=== PATIENT | female | born 1980 ===

== ENCOUNTER → 2024-06-26 13:29 | Outpatient (BNVA) | payer MEDICAID, SELFPAY | PROVIDERS: PCP Nurse Practitioner; Visit Provider Internal Medicine | DX: R79.89 Other specified abnormal findings of blood chemistry (principal); E06.9 Thyroiditis, unspecified | CPT/HCPCS: 83516; 84439; 84443; 84480; 86376; 86800 ==

== ENCOUNTER → 2025-06-18 10:29 | Outpatient (BNVA) | payer MEDICAID, SELFPAY | PROVIDERS: PCP Nurse Practitioner; Referring Provider Nurse Practitioner; Visit Provider Internal Medicine Rheumatology | DX: M25.50 Pain in unspecified joint (principal) | CPT/HCPCS: 36415; 72100; 72202; 73562; 80076; 82306; 82565; 83520; 85025; 85651; 86140; 86200; 86235; 86480; 86704; 86803; 86812; 87340; 87522 ==

== ENCOUNTER 2025-07-15 15:55 | Outpatient (CLI) | payer MEDICAID, SELFPAY ==
--- NOTE | 2025-07-15 | XR_ITS ---
NOTE: Original Signature date and time was: 07/16/25 @ 0819 Exam: XR lumbar spine min 4V [id number] Date/Time of Exam: 07/15/2025 4:00 PM Reason For Exam: lumbar pain DLP: Comparison 06/18/2025. 5 mm degenerative anterolisthesis of L4 on L5. No fracture. The disc spaces are well-maintained. Posterior elements are otherwise intact. Slight spondylosis. Moderate facet DJD at L4-5. No additional flexion or extension instability demonstrated. IMPRESSION: 1. 5 mm degenerative anterolisthesis of L4 on L5. No fracture or additional instability. MTDD
== END 2025-07-15 15:56 | disposition home or self-care (01) ==
LOC: RAD 15:57
PROVIDERS: PCP Nurse Practitioner; Visit Provider Orthopaedic Surgery
DX: M54.42 Lumbago with sciatica, left side (principal); M54.41 Lumbago with sciatica, right side; G89.29 Other chronic pain
CPT/HCPCS: 72110

== ENCOUNTER 2025-07-25 09:10 | Outpatient (CLI) | payer MEDICAID, SELFPAY ==
--- NOTE | 2025-07-25 09:15 | US_ITS ---
WS: [id number] RIGHT UPPER QUADRANT ULTRASOUND HISTORY: ABNORMAL RESULTS OF LIVER FUNCTION STUDIES COMPARISON: None available. Liver: 17.4 cm in length. Cirrhotic liver. Coarse echotexture. No mass identified. Portal Vein: Normal hepatopetal flow with monophasic waveform. Gallbladder: Normally distended gallbladder with no stones or wall thickening. CBD: 0.5 cm Pancreas: Normal size and echogenicity. Right kidney: 13.8 cm in length. Normal size and echogenicity. No hydronephrosis or mass. Aorta and IVC: Unremarkable abdominal aorta and IVC. No ascites. US/US liver [id number] IMPRESSION: 1. Hepatic cirrhosis. No hepatic mass. 2. Negative gallbladder.
[2025-07-25 09:34] LABS: Hematocrit 40.9 % (36-47); Hemoglobin 13.80 g/dL (11.27-16.99); Mean Corpuscular HGB Conc 33.7 g/dL (30-55); Mean Corpuscular Hemoglobin 31.8 pg (27-33); Mean Corpuscular Volume 94.2 fl (85-98); Nucleated Red Blood Cells % 0 %; Platelet Count 125 10^3/cmm (157-399); Red Blood Count 4.34 10^6/uL (3.85-5.65); White Blood Count 5.14 10^3/uL (3.29-11.43)
[2025-07-25 09:54] LABS: Alanine Aminotransferase 60 U/L (0-33); Albumin Level 4.2 g/dL (3.5-5.2); Alkaline Phosphatase 109 U/L (35-105); Aspartate Amino Transferase 101 U/L (0-32); Globulin 3.3 g/dL (1.3-4.6); Total Protein 7.5 g/dL (6.6-8.7)
== END 2025-07-25 09:11 | disposition home or self-care (01) ==
PROVIDERS: Absent Provider Internal Medicine Rheumatology; PCP Nurse Practitioner; Visit Provider Nurse Practitioner
DX: R94.5 Abnormal results of liver function studies (principal); Z79.899 Other long term (current) drug therapy; E78.2 Mixed hyperlipidemia; B19.20 Unspecified viral hepatitis C without hepatic coma; K74.60 Unspecified cirrhosis of liver; R93.2 Abnormal findings on diagnostic imaging of liver and biliary tract
CPT/HCPCS: 36415; 76705; 80076; 82565; 85025; 85651; 86140